=== PATIENT | female | born 1995 | race Caucasian/White ===

== ENCOUNTER 2020-06-16 15:04 | Outpatient (REF) | payer OTHER, SELFPAY ==
[2020-06-16 16:35] LABS: Basophils Percent Auto 0.5 % (0-2); Eosinophils Absolute Auto 0.1 X10*3/uL (0.0-0.4); Eosinophils Percent Auto 0.8 % (0-4); Hematocrit 38.9 % (37-47); Imm Gran Abs Auto 0.03 X10*3/uL (0.00-0.03); Imm Gran Pct Auto 0.4 % (0.0-0.4); Lymphocytes Absolute Auto 2.1 X10*3/uL (1.2-4.9); Mean Corpuscular HGB Conc 33.4 g/dl (31.0-35.0); Mean Corpuscular Hemoglobin 30.2 pg (27.0-33.0); Mean Corpuscular Volume 90.5 fL (80-98); Mean Platelet Volume 11.3 fL (9.4-12.3); Monocytes Absolute Auto 0.5 X10*3/uL (0.1-1.2); Monocytes Percent Auto 6.4 % (2-11); Neutrophils Percent Auto 64.9 % (45-73); Platelet Count 222 X10*3/uL (160-400); Red Cell Distribution Width 12.9 % (11.0-16.0); White Blood Count 7.6 X10*3/uL (4.8-10.8)
[2020-06-16 16:36] LABS: MANUAL DIFF FLAG NO
[2020-06-16 17:02] LABS: Alanine Aminotransferase 14 U/L (0-31); Albumin Level 4.3 g/dL (3.5-5.0); Alkaline Phosphatase 98 U/L (39-117); Anion Gap 13 (12-20); Aspartate Amino Transferase 15 U/L (5-31); Bilirubin Total 0.3 mg/dL (0.0-1.0); Blood Urea Nitrogen 11 mg/dL (9-16); Calcium 8.5 mg/dL (8.4-10.2); Carbon Dioxide 25 mmol/L (22-29); Chloride 105 mmol/L (96-108); Estimated Glomerular Filt Rate > 60; Glucose Random 78 mg/dL (60-115); Sodium 139 mmol/L (135-145); Total Protein 7.5 g/dL (6.5-8.0)
[2020-06-16 17:11] LABS: D Dimer < 200 NG/ML
[2020-06-16 17:23] LABS: TSH reflex Free T4 1.01 mIU/mL (0.32-4.0)
== END 2020-06-16 15:05 | disposition home or self-care (01) ==
LOC: HO.HMGCLDS 15:04
PROVIDERS: PCP Internal Medicine; Visit Provider Nurse Practitioner Family
DX: R00.2 Palpitations (principal)
CPT/HCPCS: 36415; 80053; 84443; 85025; 85379

== ENCOUNTER → 2020-07-07 12:56 | Outpatient (REF) | payer OTHER, SELFPAY ==
--- NOTE | 2020-07-07 13:01 | ECG_ITS ---
Hook-up date: 2020-07-07 13:24:00 Duration: 47:59:00 Test Indications: Palpitations Medications: [id number] QRS complexes 2 Ventricular ectopics which represent <1 % of total QRS comp. 66 Supraventricular ectopics which represent <1 % of total QRS comp. * Paced QRS complexs which represent % of total QRS comp. VENTRICULAR ECTOPY 2 Isolated 0 Bigeminal Cycles 0 Couplets 0 Runs 0 Beats in Runs * Beats LONGEST at * BPM at :: -- * Beats FASTEST at * BPM at :: -- SUPRAVENTRICULAR ECTOPY 45 Isolated 0 Couplets 0 Runs 0 Beats in Runs 0 Beats LONGEST at 0 BPM at :: -- 0 Beats FASTEST at 0 BPM at :: -- HEART RATES 66 MIN at 06:55:07 2020-07-08 85 AVG 160 MAX at 13:24:40 2020-07-07 LONGEST RR 1.0800 secs at 12:24:21 2020-07-08 S-T LEVELS Channel 1 - 128 mm at 13:24:00 2020-07-07 - 128 mm at 13:24:00 2020-07-07 Channel 2 - 128 mm at 13:24:00 2020-07-07 - 128 mm at 13:24:00 2020-07-07 Channel 3 - 128 mm at 03:24:31 -- - 128 mm at 03:24:31 Basic rhythm Normal sinus rhythm No long pause or profound bradycardia Rare Premature atrial complexes Patient reported symptoms correlated with NSR Referred By: Dasha Gonzalez Overread By: NATIVIDAD MONTOYA MD
== END ==
LOC: HO.CARD 12:56
PROVIDERS: PCP Internal Medicine; Visit Provider Nurse Practitioner Family
DX: R00.2 Palpitations (principal)
CPT/HCPCS: 93226

== ENCOUNTER 2020-10-30 20:43 | Emergency (ER) | payer OTHER, SELFPAY ==
--- NOTE | ~2020-10-30 | XR_ITS ---
EXAMINATION: XR FOOT, LEFT CLINICAL INFORMATION: Fourth and fifth toe crush injury COMPARISON: None TECHNIQUE: AP, lateral, and oblique views of the left foot. FINDINGS: Bone alignment is normal. No fracture or dislocation is seen. Joint spaces are normal. There is a small plantar calcaneal spur. Soft tissues are otherwise normal. XR/XR foot LT 2V IMPRESSION: No fracture seen.
[2020-10-30 21:17] VITALS: BP 148/107; PULSE 95; RESP 18; TEMP 36.9; O2SAT 99; BMI 39.9
--- NOTE | 2020-10-30 22:28 | ED_ITS ---
HPI - Extremity Injury (Lower) General Chief Complaint: Extremity Injury, Lower Stated Complaint: foot injury Time Seen by Provider: 10/30/20 21:15 Source: patient Mode of arrival: ambulatory History of Present Illness HPI Narrative: 25-year-old female without significant past medical history presents after running and injuring her left foot in an unknown manner but patient suspects she may have caught her 5th toe on a brick wall the rest of her foot moved forward. Afterwards patient noted swelling to the top of the foot and she was unable to bear weight. She denies any numbness/tingling/weakness within that foot otherwise. Related Data Previous Rx's Medication Instructions Recorded nnbatvoajg-lkbbxtmklrzwp-pyytlewj 1 tab PO Q8H PRN #14 tab 06/27/20 50 mg-325 mg-40 mg tablet lorazepam 0.5 mg tablet 0.5 mg PO DAILY PRN #10 tab 06/27/20 ondansetron HCl 4 mg tablet 4 mg PO DAILY PRN #20 tab 06/27/20 fluoxetine 10 mg capsule 10 mg PO DAILY #30 cap 07/25/20 fluoxetine 20 mg capsule 20 mg PO DAILY #30 cap 09/14/20 Allergies Allergy/AdvReac Type Severity Reaction Status Date / Time vancomycin [VANCOMYCIN] Allergy Intermediate CONGESTION/TONGUE Verified 07/22/20 15:11 TINGLGING/FLUSHED, anaphylaxis, itching Review of Systems Review of Systems: Pertinent positives and negatives as stated HPI 10 point review of systems otherwise negative. PMFSH Past Medical History Source: nursing notes reviewed Medical History Generalized anxiety disorder Migraine depression Surgical History History of laparoscopic cholecystectomy Family History Family History Mother HIV (human immunodeficiency virus infection) Brother Thyroid cancer Maternal Grandmother Ovarian cancer Social History Social History Alcohol intake: never Smoking Status: Never smoker Advance Directives: No Advance Directives Information Provided: No Patient : No Physical Exam Vital Signs: Vital Signs: Last Vital Signs Temp 98.4 F 10/30/20 21:17 Pulse 95 10/30/20 21:17 Resp 18 10/30/20 21:17 BP 148/107 H 10/30/20 21:17 Pulse Ox 99 10/30/20 21:17 Body Mass Index 39.9 VITAL SIGNS: Reviewed. GENERAL: Well developed, well nourished, in no acute distress. HEAD: Normocephalic/atraumatic EYES: PERRLA, EOMI NOSE: Nares patent bilateral OROPHARYNX: no oral lesions noted, posterior pharynx clear NECK: Supple, no adenopathy LUNGS: Normal breath sounds. No adventitious sounds or accessory muscle use. SpO2<99> CARDIOVASCULAR: Regular rate and rhythm without noted murmurs ABDOMEN: Soft, non-tender, non-distended with bowel sounds. LEFT FOOT: Some swelling over the dorsum of the foot and pain when abduction of toes is attempted and a noted laceration between the 4th and 5th toes with bleeding that is currently hemostatic no by malleolar pain on palpation, pulses intact, sensation intact, capillary refill less than 3 seconds NEUROLOGIC: Alert and oriented x 4. Course Course Course Narrative: 25-year-old female with history and clinical presentation consistent with likely musculoskeletal/tendinous injury to the left foot as well as a tear between the 4th and 5th toes. Review of x-ray negative for acute fra cture or dislocation. Combination analgesics provided. After numbing the area there was a noted 2.5 cm laceration, consistent with having torn during the injury which was primarily repaired with 3 interrupted nylon sutures. Patient will be discharged to home in stable condition with instructions to follow-up for suture removal in 7 days. Procedures Laceration Laceration 1: Site: lower extremity Side (If applicable): left Size (cm): 2.5 Description: linear and irregular Depth: simple, single layer Local Anesthetic: lidocaine 2% Amount of anesthesia used (mL): 5 Pre-repair: wound explored, irrigated extensively and deep structures intact Skin layer closed with: nylon Size (cm): 4-0 Number of sutures: 3 Technique: simple, interrupted Discharge Plan Discharge Clinical Impression: Laceration Patient Disposition: Home, Self-Care Instructions: Care For Your Stitches (ED), Laceration (ED) Additional Instructions: 1. Tylenol 1000 mg, orally, every 6 hours as needed for pain control. Do not exceed 4000 mg within 24 hours. 2. Ibuprofen 400 mg, orally with milk or food, every 6 hours as needed for pain control. I recommend taking this medication with the Tylenol for added benefit in pain relief. 3. You may shower and cleanse with soap and water, blot dry afterwards, place a small piece of gauze in between your toes after covering sutures with antibiotic ointment (jvtk-fqh-jcgvghm) and then re-taped being the toes together. 4. You should follow-up with your primary care provider in 7 days for suture removal. Return to the emergency room for any acute development of fever, chills, increasing redness over your foot or drainage from the wound. Prescriptions: No Action hfybpiwfif-htaldseepebwu-fzle 50-325-40 mg tablet 1 tab PO Q8H PRN (Reason: headache) Qty: 14 RF: 0 lorazepam 0.5 mg tablet 0.5 mg PO DAILY PRN (Reason: anxiety) Qty: 10 RF: 0 ondansetron HCl 4 mg tablet 4 mg PO DAILY PRN (Reason: nausea) Qty: 20 RF: 0 fluoxetine 10 mg capsule 10 mg PO DAILY Qty: 30 RF: 5 fluoxetine 20 mg capsule 20 mg PO DAILY Qty: 30 RF: 3 Referrals: Elina Witt MD [Primary Care Provider] - 2 days (Suture removal in 7 days)
[2020-10-30] MEDS: Acetaminophen 325 MG TABLET 975 MG PO (23:09)
[2020-10-30] MEDS: Ketorolac Tromethamine 15 MG/ML VIAL IM (23:09)
[2020-10-30] MEDS: Diphth,Pertus(ACell),Tet Adult 0.5 ML SYRINGE IM (23:10)
[2020-10-30] MEDS: Lidocaine HCl 2 % 20 ML VIAL SUBCUT (23:34)
== END 2020-10-31 01:01 | disposition home or self-care (01) ==
PROVIDERS: Emergency Provider Student in an Organized Health Care Education/Training Program; PCP Internal Medicine
DX: S91.312A Laceration without foreign body, left foot, initial encounter (principal); W26.9XXA Contact with unspecified sharp object(s), initial encounter; Y93.02 Activity, running; Y92.410 Unspecified street and highway as the place of occurrence of the external cause; Y99.9 Unspecified external cause status
CPT/HCPCS: 12001; 73620; 90471; 90715; 96372; 99283; 99284; J1885

== ENCOUNTER 2022-01-10 09:10 | Outpatient (REF) | payer OTHER, SELFPAY | END 2022-01-10 09:11 | disposition home or self-care (01) | LOC: HO.LAB 09:10 | PROVIDERS: Visit Provider Advanced Practice Midwife | DX: Z01.419 Encounter for gynecological examination (general) (routine) without abnormal findings (principal) | CPT/HCPCS: 88142 ==

== ENCOUNTER 2022-03-02 10:32 | Outpatient (REF) | payer OTHER, SELFPAY ==
--- NOTE | ~2022-03-02 | XR_ITS ---
EXAMINATION: XR CERVICAL SPINE CLINICAL INFORMATION: Cervicalgia COMPARISON: None TECHNIQUE: 5 views of the cervical spine, inclusive of flexion and extension views, were obtained. FINDINGS: The vertebral alignment is normal. No intrinsic bony abnormality. The disc heights and neural foramina are well maintained. The endplates and posterior elements are normal. No fracture or subluxation. The surrounding prevertebral soft tissues are unremarkable. Normal translation with flexion and extension XR/XR cervical spine w flex/ext IMPRESSION: Unremarkable examination.
== END 2022-03-02 10:33 | disposition home or self-care (01) ==
LOC: HO.HMGCX 10:32
PROVIDERS: PCP Internal Medicine; Visit Provider Internal Medicine
DX: M54.2 Cervicalgia (principal); G89.29 Other chronic pain
CPT/HCPCS: 72052

== ENCOUNTER 2022-03-24 09:33 | Outpatient (REF) | payer OTHER, SELFPAY ==
[2022-03-24 12:44] LABS: Influenza A PCR NEGATIVE (Negative); Influenza B PCR NEGATIVE (Negative); Resp Syncy Virus RNA Qual PCR NEGATIVE (Negative); SARS COV2 PCR INHOUSE NEGATIVE (Negative)
== END 2022-03-24 09:34 | disposition home or self-care (01) ==
LOC: HO.LAB 09:33
PROVIDERS: Visit Provider Nurse Practitioner Acute Care
DX: R68.89 Other general symptoms and signs (principal); Z20.822 Contact with and (suspected) exposure to COVID-19
CPT/HCPCS: 0241U

== ENCOUNTER 2022-04-12 16:56 | Emergency (ER) | payer OTHER, SELFPAY ==
[2022-04-12 17:12] VITALS: BP 106/59; PULSE 110; RESP 18; TEMP 36.6; O2SAT 100; BMI 44.1
--- NOTE | 2022-04-12 17:15 | ECG_ITS ---
Test Reason : AND PAIN Blood Pressure : / mmHG Vent. Rate : 109 BPM Atrial Rate : 109 BPM P-R Int : 134 ms QRS Dur : 076 ms QT Int : 348 ms P-R-T Axes : 028 106 047 degrees QTc Int : 468 ms Sinus tachycardia Rightward axis Otherwise normal ECG When compared with ECG of 18-FEB-2018 04:45, Heart rate has increased Referred By: Generic ED Physician Electronically Signed By:INDIA HOGAN MD
--- NOTE | 2022-04-12 17:40 | ED.GENADULT ---
HPI - General Adult General Source: patient, RN notes reviewed and old records reviewed Mode of arrival: ambulatory Limitations: no limitations History of Present Illness HPI narrative: 26-year-old female with past medical history of morbid obesity, anxiety is here today for reporting blood with bowel movements. Patient reports that she was diagnosed with hemorrhoids after she had her children. Patient states that she has been moving her bowels well without any issues. Patient states that her bowels are soft. Patient denies any diarrhea or constipation. Patient states that she does need to strain when she goes to the bathroom. Patient states that she is not holding when she has to have a bowel movement. Usually she moves her bowels without any issues. Patient reports that she noticed a large amount of blood in the toilet after a bowel movement without any blood clots. Patient also noticed that she has significant amount of blood on the tissue when she wipes. Patient denies any dizziness, weakness, presyncope or syncope. Patient is unable to tell us if she has any family history of colorectal cancer as she was adopted. Patient denies any weight loss. Denies any melena. Denies ribbon like stools. Onset (ago): day(s) Related Data Home Medications Medication Instructions Recorded Confirmed levonorgestrel 20 mcg/24 hours (8 intrauterine 03/02/22 yrs) 52 mg intrauterine device (Mirena) Previous Rx's Medication Instructions Recorded hgnidxaitf-gvxpbqbiqzngq-bymivbfb 1 cap PO Q6H PRN headache #20 caps 12/21/21 50 mg-325 mg-40 mg capsule lorazepam 0.5 mg tablet 0.5 mg PO DAILY PRN anxiety #14 12/21/21 tabs ondansetron 4 mg disintegrating 4 mg PO Q8H PRN nausea and 12/21/21 tablet vomiting #30 tabs fluoxetine 20 mg capsule 20 mg PO DAILY #30 caps 03/02/22 amoxicillin 500 mg capsule 500 mg PO BID #14 caps 03/24/22 ofloxacin 0.3 % eye drops See Rx Instructions ophthalmic 03/24/22 (eye) .COMPLEX #10 mL docusate sodium 100 mg capsule 100 mg PO DAILY #20 caps 04/12/22 hydrocortisone 2.5 % topical cream 1 appl [place] BID-TID PRN hemorrhoids 04/12/22 with perineal applicator #30 grams (Proctosol HC) Allergies Allergy/AdvReac Type Severity Reaction Status Date / Time vancomycin [VANCOMYCIN] Allergy Intermediate CONGESTION/TONGUE Verified 03/24/22 09:22 TINGLGING/FLUSHED, anaphylaxis, itching Review of Systems Review of Systems: Constitutional : No Weight loss, No Fever, No Chills, No Night Sweats, No Fatigue, No Malaise Cardiovascular : No Chest Pain, No SOB, No Dyspnea on Exertion, No Orthopnea, No Edema, No Palpitations Respiratory : No Cough, No Sputum, No Wheezing, No Smoke Exposure, No Dyspnea Gastrointestinal : No Nausea, No Vomiting, No Diarrhea, No Constipation, No abdominal Pain, hematochezia No Melena Genitourinary : no irregular bleeding, No Dysuria, No Urinary Frequency, No Hematuria, No Urinary Incontinence, No Urgency, No Flank Pain, No Urinary Flow Changes, No Hesitancy Musculoskeletal : No joint pain, No Myalgias, No Joint Swelling Skin : No Skin Lesions, No rash Psych : No Anxiety/Panic, No Depression, No SI/HI/AH/VH, No Social Issues, Heme/Lymph: No Bruising, No Bleeding,No Lymphadenopathy Endocrine : No Polyuria, No Polydipsia, No Temperature Intolerance PMF Past Medical History Medical History Chronic midline posterior neck pain Generalized anxiety disorder Migraine Morbid obesity depression Surgical History History of laparoscopic cholecystectomy Family History Family History Mother HIV (human immunodeficiency virus infection) Mental health disorder Brother Thyroid cancer Maternal Grandmother Ovarian cancer Unknown Adopted Social History Social History Housing: House Alcohol intake: never Patient Tobacco Use Status: Never used Tobacco e-Cigarette/Vaping Use: Never Used Advance Directives: No Advance Directives Information Provided: No service: No Current occupational status: employed Cognitive needs: No Hearing needs: No Vision needs: No Physical Exam ED Vital Signs: Vital Signs - 24 hr 04/12/22 17:12 04/12/22 18:07 Temperature 97.9 F 989.0 F H Pulse Rate 110 H 105 H Respiratory Rate 18 18 Blood Pressure 106/59 L 125/79 Pulse Oximetry 100 98 Oxygen Delivery Method Room Air Room Air BMI result Body Mass Index 44.1 Const General: cooperative, healthy appearing, comfortable, no acute distress, well developed, alert and awake Nutritional Appearance: overweight Orientation/consciousness: patient oriented x3 Limitations: no limitations HENMT Head: Yes normal to inspection, Yes normocephalic and Yes atraumatic Neck Neck: Yes normal visual inspection, Yes full ROM, Yes no lymphadenopathy and Yes trachea midline Resp Effort & Inspection: normal respiratory effort and able to speak in complete sentences Auscultation: clear to auscultation bilaterally Cardio Rate: regular rate Rhythm: regular rhythm GI Inspection: Yes normal to inspection, No distended and Yes obesity Rectal Exam - Female: normal sphincter tone, heme positive stool, No External hemorrhoid(s) present, Internal hemorrhoid(s) present, No Rectal prolapse and No Anal fissure(s) present General: Yes no CVA tenderness Back/Spine/Pelvis Back: no CVA tenderness Skin General skin exam: no rashes or lesions noted, elasticity normal and turgor normal Neuro General: patient oriented x3 Psych Appearance: grossly normal and well kempt Mental Status: mental status grossly normal Speech and movement: Normal speech and movement present Affect: normal affect Attitude: cooperative Thought process: Normal thought process present Thought content: Normal thought content present Insight: Good insight present (Psych) Judgement: Good judgement present (Psych) Course Course Course Narrative: 26-year-old female with past medical history of morbid obesity, anxiety is here today for reporting blood with bowel movements. Patient reports that she was diagnosed with hemorrhoids after she had her children. Patient states that she has been moving her bowels well without any issues. Patient states that her bowels are soft. Patient denies any diarrhea or constipation. Patient states that she does need to strain when she goes to the bathroom. Patient states that she is not holding when she has to have a bowel movement. Usually she moves her bowels without any issues. Patient reports that she noticed a large amount of blood in the toilet after a bowel movement without any blood clots. Patient also noticed that she has significant amount of blood on the tissue when she wipes. Patient denies any dizziness, weakness, presyncope or syncope. Patient is unable to tell us if she has any family history of colorectal cancer as she was adopted. Patient denies any weight loss. Denies any melena. Denies ribbon like stools. Will do rectal exam, CBC, CMP. Patient denies any abdominal discomfort. Her abdomen is benign. Reevaluation(s) Reevaluation #1: Positive Hemoccult. Rectal exam shows no external hemorrhoids. Small internal hemorrhoid to the right posterior rectum. Hematocrit 38.1, hemoglobin 12.6, MCV 89.4, MCH 29.6 platelets 260, MPV 10.5. CMP normal. Patient does not have an active rectal bleed right now. No lawrence blood noted when did rectal exam. Patient will be sent home with Proctosol and stool softeners. She will follow-up with her PCP. She will be referred to GI. Medical Decision Making Lab Data Result diagrams: 04/12/22 17:34 04/12/22 17:34 Labs: Lab Results 04/12/22 04/12/22 04/12/22 Range/Units 17:34 17:34 17:34 WBC 8.1 (4.8-10.8) X10*3/uL RBC 4.26 (4.20-5.50) X10*6/uL Hgb 12.6 (12.0-16.0) g/dl Hct 38.1 (37.0-47.0) % MCV 89.4 (80.0-98.0) fL MCH 29.6 (27.0-33.0) pg MCHC 33.1 (31.0-35.0) g/dl RDW 13.2 (11.0-16.0) % Plt Count 216 (160-400) X10*3/uL MPV 10.5 (9.4-12.3) fL Immature Gran % (Auto) 0.4 (0.0-0.4) % Neut % (Auto) 66.1 (45-73) % Lymph % (Auto) 26.0 (20-40) % [place] % (Auto) 5.9 (2-11) % Eos % (Auto) 1.1 (0-4) % Baso % (Auto) 0.5 (0-2) % Lymph # (Auto) 2.1 (1.2-4.9) X10*3/uL [place] # (Auto) 0.5 (0.1-1.2) X10*3/uL Eos # (Auto) 0.1 (0.0-0.4) X10*3/uL Baso # (Auto) 0.0 (0.0-0.2) X10*3/uL Abs Immat Gran (auto) 0.03 (0.00-0.03) X10*3/uL Absolute Neuts (auto) 5.4 (2.0-8.3) x10*3/uL Absolute Nucleated RBC 0.000 (0.0-0.012) X10*3/uL Nucleated RBC % (auto) 0.0 (0.0-0.2) /100WBC Sodium 140 (135-145) mmol/L Potassium 4.2 (3.3-5.1) mmol/L Chloride 106 (96-108) mmol/L Carbon Dioxide 23 (22-29) mmol/L Anion Gap 15 (12-20) BUN 9 (9-16) mg/dL Creatinine 0.83 (0.5-1.4) mg/dL Estim Creat Clear Calc 131.1 Estimated GFR > 60 Random Glucose 107 (60-115) mg/dL Calcium 8.9 (8.4-10.2) mg/dL Total Bilirubin 0.4 (0.0-1.0) mg/dL Direct Bilirubin 0.2 (0.0-0.5) mg/dL AST 17 (5-31) U/L ALT 17 (0-31) U/L Alkaline Phosphatase 88 (39-117) U/L Total Protein 7.1 (6.5-8.0) g/dL Albumin 4.0 (3.5-5.0) g/dL Lipase 24 (8-78) U/L Urine Color Urine Appearance Urine pH (5.0-9.0) Ur Specific [place] (1.005-1.025) Urine Protein (Neg-Trace) mg/dL Urine Glucose (UA) (Negative) mg/dL Urine Ketones (Negative) mg/dL Urine Blood (Negative) Urine Nitrite (Negative) Ur Leukocyte Esterase (Negative) Urine RBC (0-2) /HPF Urine WBC (0-5) /HPF Ur Squamous Epith Cells (0-2) /HPF Urine Bacteria (None Seen) Hyaline Casts (0-2) /LPF Urine Test (NEGATIVE) Stool Occult Blood (NEGATIVE) COVID-19 ([facility]) Negative (Negative) COVID-19 Clin Com See Note 04/12/22 04/12/22 04/12/22 Range/Units 17:34 17:34 18:04 WBC (4.8-10.8) X10*3/uL RBC (4.20-5.50) X10*6/uL Hgb (12.0-16.0) g/dl Hct (37.0-47.0) % MCV (80.0-98.0) fL MCH (27.0-33.0) pg MCHC (31.0-35.0) g/dl RDW (11.0-16.0) % Plt Count (160-400) X10*3/uL MPV (9.4-12.3) fL Immature Gran % (Auto) (0.0-0.4) % Neut % (Auto) (45-73) % Lymph % (Auto) (20-40) % [place] % (Auto) (2-11) % Eos % (Auto) (0-4) % Baso % (Auto) (0-2) % Lymph # (Auto) (1.2-4.9) X10*3/uL [place] # (Auto) (0.1-1.2) X10*3/uL Eos # (Auto) (0.0-0.4) X10*3/uL Baso # (Auto) (0.0-0.2) X10*3/uL Abs Immat Gran (auto) (0.00-0.03) X10*3/uL Absolute Neuts (auto) (2.0-8.3) x10*3/uL Absolute Nucleated RBC (0.0-0.012) X10*3/uL Nucleated RBC % (auto) (0.0-0.2) /100WBC Sodium (135-145) mmol/L Potassium (3.3-5.1) mmol/L Chloride (96-108) mmol/L Carbon Dioxide (22-29) mmol/L Anion Gap (12-20) BUN (9-16) mg/dL Creatinine (0.5-1.4) mg/dL Estim Creat Clear Calc Estimated GFR Random Glucose (60-115) mg/dL Calcium (8.4-10.2) mg/dL Total Bilirubin (0.0-1.0) mg/dL Direct Bilirubin (0.0-0.5) mg/dL AST (5-31) U/L ALT (0-31) U/L Alkaline Phosphatase (39-117) U/L Total Protein (6.5-8.0) g/dL Albumin (3.5-5.0) g/dL Lipase (8-78) U/L Urine Color Yellow Urine Appearance Clear Urine pH 8.0 (5.0-9.0) Ur Specific [place] 1.015 (1.005-1.025) Urine Protein Negative (Neg-Trace) mg/dL Urine Glucose (UA) Negative (Negative) mg/dL Urine Ketones Negative (Negative) mg/dL Urine Blood Negative (Negative) Urine Nitrite Negative (Negative) Ur Leukocyte Esterase Trace H (Negative) Urine RBC 0-2 (0-2) /HPF Urine WBC 0-5 (0-5) /HPF Ur Squamous Epith Cells 0-2 (0-2) /HPF Urine Bacteria None Seen (None Seen) Hyaline Casts 0-2 (0-2) /LPF Urine Test NEGATIVE (NEGATIVE) Stool Occult Blood POSITIVE (NEGATIVE) COVID-19 ([facility]) (Negative) COVID-19 Clin Com Discharge Plan Discharge Clinical Impression: Hematochezia, Hemorrhoids Patient Disposition: Home, Self-Care Instructions: Hemorrhoids (ED) Additional Instructions: You were seen in the emergency department after having blood in your stool. All your blood work is normal. You do have small internal hemorrhoids. Please follow-up with your primary care provider. You can also with GI department. Please start using Proctosol cream 2 to 3 times a day to help you she drink the hemorrhoids. Please use docusate sodium to help soft in your stools. You may return to emergency department if your symptoms will get worse. Prescriptions: New hydrocortisone [Proctosol HC] 2.5 % cream with perineal applicator 1 appl [place] BID-TID PRN (Reason: hemorrhoids) Qty: 30 0RF docusate sodium 100 mg capsule 100 mg PO DAILY Qty: 20 0RF No Action Mirena 20 mcg/24 hours (7 yrs) 52 mg intrauterine device intrauterine fluoxetine 20 mg capsule 20 mg PO DAILY Qty: 30 5RF ondansetron 4 mg tablet,disintegrating 4 mg PO Q8H PRN (Reason: nausea and vomiting) Qty: 30 0RF tsrebxhunr-mcvlzoudrpqhu-lqtc 50-325-40 mg capsule 1 cap PO Q6H PRN (Reason: headache) Qty: 20 0RF lorazepam 0.5 mg tablet 0.5 mg PO DAILY PRN (Reason: anxiety) Qty: 14 0RF amoxicillin 500 mg capsule 500 mg PO BID Qty: 14 0RF ofloxacin 0.3 % drops See Rx Instructions ophthalmic (eye) .COMPLEX Qty: 10 0RF Rx Instructions: put 1-2 drps into affected eye(s) every 2-4 h x 2 days, then 1-2 drps 4 times/day days 3-7 ophthalmic (eye) Referrals: Elina Witt MD [Primary Care Provider] - Isidra Zamarripa MD [Physician] - (Hematochezia) Interventions: ED Discharge Assessment Last Done: 04/12/22 19:06 Discharge Date/Time: 04/12/22 19:07
[2022-04-12 17:44] LABS: MANUAL DIFF FLAG NO
[2022-04-12 17:45] LABS: Basophils Percent Auto 0.5 % (0-2); Eosinophils Absolute Auto 0.1 X10*3/uL (0.0-0.4); Eosinophils Percent Auto 1.1 % (0-4); Hematocrit 38.1 % (37.0-47.0); Hemoglobin 12.6 g/dl (12.0-16.0); Imm Gran Abs Auto 0.03 X10*3/uL (0.00-0.03); Imm Gran Pct Auto 0.4 % (0.0-0.4); Lymphocytes Absolute Auto 2.1 X10*3/uL (1.2-4.9); Mean Corpuscular HGB Conc 33.1 g/dl (31.0-35.0); Mean Corpuscular Hemoglobin 29.6 pg (27.0-33.0); Mean Corpuscular Volume 89.4 fL (80.0-98.0); Mean Platelet Volume 10.5 fL (9.4-12.3); Monocytes Absolute Auto 0.5 X10*3/uL (0.1-1.2); Monocytes Percent Auto 5.9 % (2-11); Neutrophils Absolute Auto 5.4 x10*3/uL (2.0-8.3); Neutrophils Percent Auto 66.1 % (45-73); Platelet Count 216 X10*3/uL (160-400); Red Blood Count 4.26 X10*6/uL (4.20-5.50); Red Cell Distribution Width 13.2 % (11.0-16.0); White Blood Count 8.1 X10*3/uL (4.8-10.8)
[2022-04-12 17:49] LABS: Appearance Urine Clear; Color Urine Yellow; Glucose Urine UA Negative (Negative); Leukocyte Esterase Urine Trace (Negative); Nitrite Urine Negative (Negative); Specific Gravity - Urine 1.015 (1.005-1.025); UMIC TRIGGER UACC YES; Urine Blood Negative (Negative); Urine Ketones Negative (Negative); Urine Protein Negative (Neg-Trace)
[2022-04-12 17:50] LABS: UPreg QC Valid YES; Urine Pregnancy NEGATIVE (NEGATIVE)
[2022-04-12 17:54] LABS: Bacteria Urine None Seen (None Seen); Hyaline Casts Urine 0-2 /LPF (0-2); RBC Urine 0-2 /HPF (0-2); Squamous Epithelial Cell Urine 0-2 /HPF (0-2); WBC Urine 0-5 /HPF (0-5)
[2022-04-12 18:02] LABS: COVID-19 Test Negative (Negative); IDNOW Serial# 16C4AD1C
[2022-04-12 18:07] VITALS: BP 125/79; PULSE 105; RESP 18; TEMP 531.7; TEMP 989; O2SAT 98
[2022-04-12 18:12] LABS: OBS Int Ctl Valid YES; OBS1 POSITIVE (NEGATIVE)
[2022-04-12 18:19] LABS: Alanine Aminotransferase 17 U/L (0-31); Alkaline Phosphatase 88 U/L (39-117); Anion Gap 15 (12-20); Aspartate Amino Transferase 17 U/L (5-31); Bilirubin Direct 0.2 mg/dL (0.0-0.5); Bilirubin Total 0.4 mg/dL (0.0-1.0); Blood Urea Nitrogen 9 mg/dL (9-16); Calcium 8.9 mg/dL (8.4-10.2); Carbon Dioxide 23 mmol/L (22-29); Chloride 106 mmol/L (96-108); Creatinine Clr Calc Pharmacy 131.1; Estimated Glomerular Filt Rate > 60; Glucose Random 107 mg/dL (60-115); Lipase 24 U/L (8-78); Potassium 4.2 mmol/L (3.3-5.1); Sodium 140 mmol/L (135-145); Total Protein 7.1 g/dL (6.5-8.0)
--- OUTSIDE RECORDS SUMMARY | 2022-04-12 18:57 | XMS_ITS | Continuity of Care Document ---
:1995 Author Organization [facility] Address Unavailable , Care Team Providers Name Role Phone Eduar DELCID, Elina Michel Primary Care Physician [phone] Encounter [facility] Date(s): 02/14/21 - 02/21/21 [facility] Attending Physician: Melly Ayon RD Allergies, Adverse Reactions, Alerts Substance Reaction Severity Status vancomycin Active Medications acetaminophen 325 mg oral tablet 650 mg, By Mouth, Every 6 hours, PRN, Refills 0, Maintenance, Pain , Mild Temperature, 08/11/18 8:36:19 EST Start Date: 08/11/18 Status: OrderedColace sodium 100 mg oral capsule 100 mg, 1, capsule, By Mouth, 2 times a day, # 28 capsule, Refills 0, Tot. Refills 0, Maintenance, 08/11/18 9:06:19 EST, Route to Pharmacy Electronically, [id number], [facility] Start Date: 08/11/18 Stop Date: 08/25/18 Status: Orderedpantoprazole 20 mg oral delayed release tablet 1 tablet = 20 mg, By Mouth, Daily, # 10 tablet, 0 Refills, Maintenance, 08/11/18 9:05:29 EST Start Date: 08/11/18 Stop Date: 08/21/18 Status: OrderedTums 500 mg oral tablet, chewable 500 mg, 1, tablet, Chew, Every 6 hours, PRN, Refills 0, Maintenance, Dyspepsia, 08/11/18 8:36:34 EST Start Date: 08/11/18 Status: OrderedZofran ODT 4 mg oral tablet, disintegrating 1 tablet = 4 mg, By Mouth, Every 8 hours, PRN Nausea & Vomiting, # 15 tablet, 0 Refills, Maintenance, 08/11/18 9:05:41 EST, Tablet Start Date: 08/11/18 Stop Date: 08/16/18 Status: Ordered Problem List Condition Effective Dates Status Health Status Informant Acute UTI(Confirmed) Active Anemia(Confirmed) Active Candidiasis, vulva(Confirmed) Active Anxiety and depression(Confirmed) Active (Confirmed) Active Social History Social History Type Response Smoking Status Never (less than 100 in life time) entered on: 08/28/18 Sex
--- OUTSIDE RECORDS SUMMARY | 2022-04-12 18:57 | XMS_ITS | Continuity of Care Document ---
:1995 Author Organization [facility] Address [address] [place] [address] [place] [id number]- Care Team Providers Name Role Phone Eduar DELCID, Elina Michel Primary Care Physician Encounter [facility] Date(s): 01/04/21 - 01/11/[address] [place] [id number] Attending Physician: Melly Ayon RD Referring Physician: Elina Witt MD Allergies, Adverse Reactions, Alerts Substance Reaction Severity [...] 08/11/18 9:06:19 EST, Route to Pharmacy Electronically, [id number], [facility] Start Date: 08/11/18 Stop Date: 08/25/18 [...] Active Anxiety and depression(Confirmed) Active (Confirmed) Active Vital Signs Most recent to oldest [Reference Range]: 1 Height 165 cm (01/04/21 1:14 PM) Weight 117.5 kg (01/04/21 1:14 PM) Body Mass Index [18.5-24.99] 43.16 *>HHI* (01/04/21 1:14 PM) Social History Social History Type Response Smoking Status Never (less than 100 in life time) entered on: 08/28/18 Sex
--- OUTSIDE RECORDS SUMMARY | 2022-04-12 18:57 | XMS_ITS | Continuity of Care Document ---
:1995 Author Organization [facility] Address Unavailable , Care Team Providers Name Role Phone Eduar DELCID, Elina Michel Primary Care Physician [phone] [place] [facility] [place]16/21 [facility] Attending Physician: AdmLola de jesus Admitting Physician: AdmtrLola Referring Physician: Admtr, Ar8 Allergies, Adverse Reactions, Alerts Substance Reaction Severity [...] 08/11/18 9:06:19 EST, Route to Pharmacy Electronically, [id number], [facility] Start Date: 08/11/18 Stop Date: [...]
--- OUTSIDE RECORDS SUMMARY | 2022-04-12 18:57 | XMS_ITS | Continuity of Care Document ---
:1995 Author Organization [facility] Address [address] [place] [address] [place] [id number] Care Team Providers Name Role Phone Eduar DELCID, Elina Michel Primary Care Physician Encounter [facility] [place] Date(s): 12/01/20 - 12/08/[address] [place] [id number] Encounter Diagnosis Morbid obesity with BMI of 40.0-44.9, adult (Discharge Diagnosis) - 12/01/20 Attending Physician: Noah Garcia Referring Physician: Elina Witt MD Allergies, Adverse [...] 08/11/18 9:06:19 EST, Route to Pharmacy Electronically, [id number], [facility] Start Date: 08/11/18 Stop Date: [...] Active Anxiety and depression(Confirmed) Active (Confirmed) Active Diagnosis Diagnosis Type Effective Dates Health Status Clinical In formant Service Morbid obesity Discharge 12/01/20 with BMI of Diagnosis 40.0-44.9, adult Vital Signs Most recent to oldest [Reference Range]: 1 Height 165 cm (12/01/20 10:44 AM) Weight 117.8 kg (12/01/20 10:44 AM) Pulse Rate [55-90 bpm] 85 bpm (12/01/20 10:44 AM) Body Mass Index [18.5-24.99] 43.27 *>HHI* (12/01/20 10:44 AM) Blood Pressure [90-138/55-84 mm Hg] 134/82 mm Hg (12/01/20 10:44 AM) Temperature [96.8-100.4 DegF] 97.5 DegF (12/01/20 10:44 AM) Blood pressure sites Arm, left (12/01/20 10:44 AM) Temperature Route Temporal (12/01/20 10:44 AM) Weight Obtained Via Standing scale (12/01/20 10:44 AM) Social History Social History Type Response Smoking Status Never (less than 100 in life time) entered on: 08/28/18 Sex
== END 2022-04-12 19:07 | disposition home or self-care (01) ==
PROVIDERS: Nurse Practitioner Family; Emergency Provider Emergency Medicine; PCP Internal Medicine
DX: K92.1 Melena (principal); K64.8 Other hemorrhoids; Z20.822 Contact with and (suspected) exposure to COVID-19; E66.9 Obesity, unspecified; Z68.41 Body mass index [BMI] 40.0-44.9, adult
CPT/HCPCS: 80053; 81001; 81025; 82248; 82272; 83690; 85025; 87635; 93005; 99283

== ENCOUNTER 2023-01-22 11:22 | Outpatient (AMB) | payer OTHER, SELFPAY ==
[2023-01-22 11:48] VITALS: BP 110/70; PULSE 88; O2SAT 98; BMI 44.8
--- NOTE | 2023-01-22 11:48 | A.OFFPC_ITS ---
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 Accompanied by: Self / Same As Patient Allergies vancomycin [VANCOMYCIN] Allergy (Intermediate, Verified 01/24/23 01:32) CONGESTION/TONGUE TINGLGING/FLUSHED, anaphylaxis, itching Medication List - Last Reconciled 01/24/23 by Elina Witt MD brolotkejc-wiotbksfleohn-gymg 50-325-40 mg 1 cap PO Q6H PRN docusate sodium 100 mg PO DAILY fluoxetine 20 mg PO DAILY hydrocortisone 2.5% (Proctosol HC) 1 appl OR BID-TID PRN levonorgestrel (Mirena) intrauterine lorazepam 0.5 mg PO DAILY PRN ondansetron 4 mg PO Q8H PRN Tobacco use date assessed: 01/22/23 Dental Screening Dental Screen Date: 01/22/23 Did you have a dental visit in the last 12 months?: Yes Did you have a dental problem in the last 6 months where you did not have access to dental care?: No Was dental information given to patient?: Patient has dentist HPI Lump on right breast, nipple pain HPI Details 27-year-old lady here today complaining of intermittent shooting pain in right breast mainly on the lateral aspect, shooting to the nipple, this comes and goes, lasting only for several seconds. Patient also has been noticing a yellow-red discharge coming from right nipple, present now for the last several weeks. Denies any history of trauma or strenuous exertion. Patient also reports feeling a lump on the outer aspect her right breast. [facility] Medical History (Updated 01/22/23 @ 12:22 by Elina Witt MD) Breast pain, right Chronic midline posterior neck pain Discharge from nipple Generalized anxiety disorder Migraine Morbid obesity depression Surgical History History of laparoscopic cholecystectomy Family History Mother HIV (human immunodeficiency virus infection) Mental health disorder Brother Thyroid cancer Maternal Grandmother Ovarian cancer Unknown Adopted Social History Housing: House Alcohol intake: never Patient Tobacco Use Status: Never used Tobacco e-Cigarette/Vaping Use: Never Used service: No Current occupational status: employed Cognitive needs: No Hearing needs: No Vision needs: No Questionnaire Thrive Questionnaire Date Thrive assessed: 12/21/21 I am a: Patient What is your living situation today?: I have a steady place to live Within the past 12 months, did the food you bought not last and you didn't have the money to get more?: Never true Within the past 12 months, did you worry whether your food would run out before you got money to buy more?: Never true AUDIT C Alcohol Use Questionnaire (AUDIT-C) 1. How often do you have a drink containing alcohol?: 2-4 times a month 2. How many drinks containing alcohol do you have on a typical day when you are drinking?: 1 or 2 3. How often do you have six or more drinks on one occasion?: Never Total Score: 2 YEE-7 AMB Questionnaire YEE-7 Date YEE - 7 assessed: 12/21/21 Feeling nervous, anxious, or on edge: 1 = Several days Not being able to stop or control worryin = Several days Worrying too much about different things: 1 = Several days Trouble relaxin = More than half the days Being so restless that it is hard to sit still: 1 = Several days Becoming easily annoyed or irritable: 3 = Nearly every day Feeling afraid as if something awful might happen: 1 = Several days Total YEE-7 score (0-4 normal; 5-9 mild; 10-14 moderate; 15-21 severe): 10 Source: Developed by Drs. Tico Carranza, Angelita Iverson, Pradeep Gonzales and colleagues, with an educational arin from [employer]. Review of Systems Const All systems reviewed & are unremarkable except as noted in HPI and below Physical exam (Primary Care) Vital Signs: Last Vital Signs Pulse 88 01/22/23 11:48 BP 110/70 01/22/23 11:48 Pulse Ox 98 01/22/23 11:48 BMI result Body Mass Index 44.8 Tobacco/Smoking Status: Tobacco use Status Tobacco use date assessed 01/22/23 01/22/23 11:52 Patient Tobacco Use Status Never used Tobacco 01/22/23 11:52 e-Cigarette/Vaping Use Never Used 01/22/23 11:52 Thrive Assessment: Date of Thrive Assessment Date Thrive assessed 12/21/21 01/22/23 11:52 Const Other: Alert oriented x3, no acute cardiorespiratory distress noted Nutritional Appearance: obese morbidly obese [facility] Mouth: Normal oral and palatal mucosa present, oropharynx normal and moist mucous membranes Neck Neck: Yes full ROM, Yes no lymphadenopathy and Yes supple Thyroid: Thyroid normal Chest Other: Tenderness on palpation of lateral aspect of right breast, no nipple discharge seen, no mass palpated Chest palpation & inspection: normal inspection of the chest, normal palpation of entire chest wall and crepitus Breast/axilla inspection: normal inspection of the breasts and normal inspection of the axillae Assessment and Plan Assessment & Plan (1) Discharge from nipple: Code(s): N64.52 - Nipple discharge Plan: Ordered bilateral diagnostic mammogram, and a serum prolactin level (2) Breast pain, right: Code(s): N64.4 - Mastodynia Orders: Orders Prolactin 01/22/23 N64.4 - Mastodynia, N64.52 - Nipple discharge MM diagnostic mammo BI 01/22/23 N64.4 - Mastodynia, N64.52 - Nipple discharge Coding Level of Care Code Est Pt Level 3 (61845) Diagnoses Discharge from nipple N64.52 Breast pain, right N64.4
== END 2023-01-22 12:38 | disposition home or self-care (01) ==
PROVIDERS: PCP Internal Medicine; Visit Provider Internal Medicine
DX: N64.52 Nipple discharge (principal); N64.4 Mastodynia
CPT/HCPCS: 99213

== ENCOUNTER 2023-01-22 12:26 | Outpatient (REF) | payer OTHER, SELFPAY ==
[2023-01-23 09:04] LABS: Prolactin 3.6 ng/mL
== END 2023-01-22 12:27 | disposition home or self-care (01) ==
LOC: HO.HMGCLDS 12:26
PROVIDERS: PCP Internal Medicine; Visit Provider Internal Medicine
DX: N64.4 Mastodynia (principal); N64.52 Nipple discharge
CPT/HCPCS: 36415; 84146

== ENCOUNTER 2023-02-01 12:45 | Outpatient (REF) | payer OTHER, SELFPAY ==
--- NOTE | ~2023-02-01 | US_ITS ---
EXAMINATION: US DIAGNOSTIC ULTRASOUND BREAST, RIGHT CLINICAL INFORMATION: 27-year-old female complaining of yellow/red discharged from the right nipple, burning in nipple that radiates, and tenderness and swelling under right armpit.. COMPARISON: None available. TECHNIQUE: Ultrasound of the right breast is performed with real-time schmid scale imaging and color Doppler, with attention to the retroareolar region and right axilla. FINDINGS: There is no focal suspicious finding. There is no solid mass, architectural abnormality, duct ectasia, or edema in the soft tissue planes. There is no evidence of intraductal mass. There are no imaging features to explain right nipple discharge. The right axilla demonstrates no mass or abnormal lymphadenopathy. Only normal right axillary fat is noted. Results were discussed with the patient at time of visit. US/US breast RT limited mamm only IMPRESSION: No sonographic correlate to explain right nipple discharge and right axillary pain. Recommend clinical management. ASSESSMENT: BI-RADS 1: Negative RECOMMENDATION: 1. Patient should be managed based on the clinical impression. Decision to proceed with biopsy should be based on clinical grounds and degree of clinical concern. This patient's information was entered into a reminder system with a target due date for their next mammogram.
== END 2023-02-01 12:46 | disposition home or self-care (01) ==
LOC: HO.MAMMO 12:45
PROVIDERS: PCP Internal Medicine; Visit Provider Internal Medicine
DX: N64.4 Mastodynia (principal); N64.52 Nipple discharge
CPT/HCPCS: 76642

== ENCOUNTER → 2023-02-01 13:00 | Outpatient (BNV) | payer OTHER, SELFPAY | PROVIDERS: PCP Internal Medicine; Visit Provider Radiology Diagnostic Radiology | DX: N64.52 Nipple discharge (principal) | CPT/HCPCS: 76642 ==